=== PATIENT | male | born 1965 | race Caucasian/White ===

== ENCOUNTER 2023-02-22 08:20 | Day surgery (SDC) | payer OTHER ==
[2023-02-22 08:22] LABS: #Basophils 0.1 thou/uL (0.0-0.2); #Eosinphils 0.1 thou/uL (0.0-0.7); #Monocytes 0.8 thou/uL (0.11-0.59); #Neutrophils 7.1 thou/uL (1.40-6.50); %Basophils 0.5 % (0.0-1.0); %Eosinophils 0.8 % (0.0-10.0); %Monocytes 8.2 % (0.0-10.0); %Neutrophils 77.1 % (42.0-75.0); Hematocrit 46.4 % (42.0-52.0); Hemoglobin 14.7 g/dL (14.0-18.0); Mean Corpuscular HGB CONC 31.7 g/dL (32.0-36.0); Mean Corpuscular Hemoglobin 28.7 pg (27.0-31.0); Mean Corpuscular Volume 90.6 fl (78.0-98.0); Mean Platelet Volume 9.9 fL (7.4-10.4); Platelet Count 211 10x3/uL (130-400); RBC Distribution Width 17.3 % (11.5-14.5); Red Blood Cell (RBC) Count 5.12 mill/uL (4.70-6.10); White Blood Cell (WBC) Count 9.2 10x3/uL (4.8-10.8)
[2023-02-22 08:36] LABS: INR-International Normal Ratio 0.9; PTT 27.4 sec (22.9-36.1); Prothrombin Time 12.6 sec (12.0-14.7)
[2023-02-22 11:29] VITALS: BP 136/89; TEMP 98.6
== END 2023-02-22 13:08 | disposition home or self-care (01) ==
LOC: CT 08:20
PROVIDERS: ATTEND Urology
PROC: 0WBH3ZX Excision of Retroperitoneum, Percutaneous Approach, Diagnostic (ICD-10-PCS; principal; 2023-02-22)
DX: C64.2 Malignant neoplasm of left kidney, except renal pelvis (principal); I10 Essential (primary) hypertension; E78.00 Pure hypercholesterolemia, unspecified; Z90.49 Acquired absence of other specified parts of digestive tract; Z79.899 Other long term (current) drug therapy; Z87.891 Personal history of nicotine dependence
CPT/HCPCS: 36415; 49180; 77012; 85025; 85610; 85730; 88184; 88305; 88333; 88334; 88341; 88342

== ENCOUNTER 2023-03-16 08:22 | Outpatient (CLI) | payer OTHER | END 2023-03-16 08:23 | disposition home or self-care (01) | LOC: CT 08:22 | PROVIDERS: ATTEND Internal Medicine Hematology & Oncology | DX: C64.2 Malignant neoplasm of left kidney, except renal pelvis (principal); C77.2 Secondary and unspecified malignant neoplasm of intra-abdominal lymph nodes; R91.8 Other nonspecific abnormal finding of lung field; N28.89 Other specified disorders of kidney and ureter; M48.8X4 Other specified spondylopathies, thoracic region | CPT/HCPCS: 71260; 74177; 78306; A9503 ==

== ENCOUNTER 2023-05-25 11:38 | Outpatient (CLI) | payer OTHER | END 2023-05-25 11:39 | disposition home or self-care (01) | LOC: SCSMRI 11:38 | PROVIDERS: ATTEND Family Medicine | DX: C79.51 Secondary malignant neoplasm of bone (principal); M54.14 Radiculopathy, thoracic region; G89.4 Chronic pain syndrome; M48.04 Spinal stenosis, thoracic region | CPT/HCPCS: 72146 ==

== ENCOUNTER 2023-05-30 09:13 | Outpatient (CLI) | payer OTHER ==
[2023-05-30] MEDS ORDERED: Iopamidol 370 76% 100 ML VIAL ONE (13:31)
== END 2023-05-30 09:14 | disposition home or self-care (01) ==
LOC: NM 09:13
PROVIDERS: ATTEND Internal Medicine Hematology & Oncology
DX: S22.079A Unspecified fracture of T9-T10 vertebra, initial encounter for closed fracture (principal); C64.9 Malignant neoplasm of unspecified kidney, except renal pelvis; C79.51 Secondary malignant neoplasm of bone; M89.9 Disorder of bone, unspecified; N28.89 Other specified disorders of kidney and ureter
CPT/HCPCS: 71260; 74177; 78306; A9503

== ENCOUNTER 2023-11-22 08:37 | Outpatient (CLI) | payer OTHER ==
[2023-11-22] MEDS ORDERED: Iopamidol 370 76% 100 ML VIAL ONE (10:52)
== END 2023-11-22 08:38 | disposition home or self-care (01) ==
LOC: CT 08:37
PROVIDERS: ATTEND Internal Medicine Hematology & Oncology
DX: C64.2 Malignant neoplasm of left kidney, except renal pelvis (principal); C79.51 Secondary malignant neoplasm of bone; R91.8 Other nonspecific abnormal finding of lung field
CPT/HCPCS: 71260; 74177; Q9967

== ENCOUNTER 2024-02-24 08:48 | Outpatient (CLI) | payer OTHER ==
[2024-02-24] MEDS ORDERED: Iopamidol 370 76% 100 ML VIAL ONE (11:32)
== END 2024-02-24 08:49 | disposition home or self-care (01) ==
LOC: CT 08:48
PROVIDERS: ATTEND Internal Medicine Hematology & Oncology
DX: C64.2 Malignant neoplasm of left kidney, except renal pelvis (principal); C79.51 Secondary malignant neoplasm of bone; R91.1 Solitary pulmonary nodule; N28.89 Other specified disorders of kidney and ureter; M89.9 Disorder of bone, unspecified
CPT/HCPCS: 71260; 74177; 78306; A9503; Q9967

== ENCOUNTER 2024-05-08 08:48 | Outpatient (CLI) | payer OTHER | END 2024-05-08 08:49 | disposition home or self-care (01) | LOC: NM 08:48 | PROVIDERS: ATTEND Internal Medicine Hematology & Oncology | DX: C64.2 Malignant neoplasm of left kidney, except renal pelvis (principal); C79.51 Secondary malignant neoplasm of bone; R91.1 Solitary pulmonary nodule | CPT/HCPCS: 78306; A9503 ==

== ENCOUNTER 2024-05-24 09:17 | Outpatient (CLI) | payer OTHER | END 2024-05-24 09:18 | disposition home or self-care (01) | LOC: CT 09:17 | PROVIDERS: ATTEND Internal Medicine Hematology & Oncology | DX: C64.2 Malignant neoplasm of left kidney, except renal pelvis (principal); C79.51 Secondary malignant neoplasm of bone; R91.8 Other nonspecific abnormal finding of lung field; N28.89 Other specified disorders of kidney and ureter; M89.9 Disorder of bone, unspecified | CPT/HCPCS: 71260; 74177 ==

== ENCOUNTER 2024-07-12 15:15 | Outpatient (CLI) | payer OTHER | END 2024-07-12 15:16 | disposition home or self-care (01) | LOC: BICRAD 15:15 | PROVIDERS: ATTEND Radiology Radiation Oncology | DX: R07.2 Precordial pain (principal); C79.51 Secondary malignant neoplasm of bone; M84.48XD Pathological fracture, other site, subsequent encounter for fracture with routine healing | CPT/HCPCS: 71120 ==

== ENCOUNTER 2024-11-06 15:13 | Outpatient (CLI) | payer OTHER | END 2024-11-06 15:14 | disposition home or self-care (01) | LOC: RAD 15:13 | PROVIDERS: ATTEND Internal Medicine | DX: Z01.89 Encounter for other specified special examinations (principal); J91.0 Malignant pleural effusion; J98.11 Atelectasis; M89.9 Disorder of bone, unspecified; C79.51 Secondary malignant neoplasm of bone; C80.1 Malignant (primary) neoplasm, unspecified; Z95.828 Presence of other vascular implants and grafts | CPT/HCPCS: 71046 ==

== ENCOUNTER 2024-12-04 14:31 | Outpatient (CLI) | payer OTHER | END 2024-12-04 14:32 | disposition home or self-care (01) | LOC: SCSRAD 14:31 | PROVIDERS: ATTEND Internal Medicine Hematology & Oncology | DX: D50.0 Iron deficiency anemia secondary to blood loss (chronic) (principal); C64.2 Malignant neoplasm of left kidney, except renal pelvis; R09.02 Hypoxemia; J90 Pleural effusion, not elsewhere classified; C79.51 Secondary malignant neoplasm of bone; R91.8 Other nonspecific abnormal finding of lung field; J98.6 Disorders of diaphragm; J94.9 Pleural condition, unspecified | CPT/HCPCS: 71046 ==

== ENCOUNTER 2024-12-24 22:27 | Observation (INO) | payer OTHER ==
[2024-12-24 23:51] LABS: Hematocrit 13.4 % (42.0-52.0); Hemoglobin 4.2 g/dL (14.0-18.0); Mean Corpuscular Hemoglobin 32.8 pg (27.0-31.0); Mean Corpuscular Volume 104.7 fL (78.0-98.0); Platelet Count 11 10x3/uL (130-400); Red Blood Cell (RBC) Count 1.28 mill/uL (4.70-6.10); White Blood Cell (WBC) Count 2.79 10x3/uL (4.8-10.8)
[2024-12-24 23:52] LABS: #Basophils Less than 0.03 10x3/uL (0.0-0.2); #Eosinophils 0.04 10x3/uL (0.0-0.7); #Monocytes 0.15 10x3/uL (0.11-0.59); #Neutrophils 2.46 10x3/uL (1.40-6.50); %Basophils 0.4 % (0.0-1.0); %Eosinophils 1.4 % (0.0-10.0); %Lymphocytes 4.3 % (21.0-51.0); %Monocytes 5.4 % (0.0-10.0); %Neutrophils 88.1 % (42.0-75.0)
[2024-12-25] LABS: ALT (SGPT) 16 U/L (Less than 45); AST (SGOT) 32 U/L (11-34); Albumin 3.1 g/dL (3.1-4.5); Alkaline Phosphatase 177 U/L (40-110); Anion Gap 18 mmol/L (10-20); BUN (Urea Nitrogen) 34 mg/dL (8.4-25.7); Bilirubin, Total 0.2 mg/dL (0.3-1.2); Calc. Creatinine Clearance 0 mL/min (70-130); Calcium 9.8 mg/dL (7.8-10.44); Carbon Dioxide 31 mmol/L (22-29); Chloride 97 mmol/L (98-107); Globulin 3.0 g/dL (2.4-3.5); Glucose 129 mg/dL (70-105); Potassium 4.2 mmol/L (3.5-5.1); Sodium 142 mmol/L (136-145)
[2024-12-25] MEDS ORDERED: Calcium Carbonate 500 MG ChewTAB PO PRN (05:26)
[2024-12-25] MEDS ORDERED: Ondansetron PF 4 MG/2 ML Vial IVP PRN (05:26)
[2024-12-25] MEDS ORDERED: Acetaminophen 325 MG TAB PO PRN (05:26)
[2024-12-25 10:46] LABS: #Basophils Less than 0.03 10x3/uL (0.0-0.2); #Eosinophils 0.09 10x3/uL (0.0-0.7); #Monocytes 0.44 10x3/uL (0.11-0.59); #Neutrophils 3.33 10x3/uL (1.40-6.50); %Basophils 0.5 % (0.0-1.0); %Eosinophils 2.2 % (0.0-10.0); %Lymphocytes 5.1 % (21.0-51.0); %Monocytes 10.7 % (0.0-10.0); %Neutrophils 81.0 % (42.0-75.0); Hematocrit 21.6 % (42.0-52.0); Hemoglobin 6.7 g/dL (14.0-18.0); Mean Corpuscular Hemoglobin 31.8 pg (27.0-31.0); Mean Corpuscular Volume 102.4 fL (78.0-98.0); Platelet Count 119 10x3/uL (130-400); Red Blood Cell (RBC) Count 2.11 mill/uL (4.70-6.10); White Blood Cell (WBC) Count 4.11 10x3/uL (4.8-10.8)
[2024-12-25] MEDS ORDERED: Iopamidol 370 76% 100 ML VIAL ONE (11:03)
[2024-12-25 11:33] LABS: Anisocytosis SLIGHT = 6-15 cells HPF (0-5); Macrocytosis SLIGHT = 6-15 cells HPF (0-5); Platelet Adequacy Comment Platelets Decreased; Polychromasia SLIGHT = 2-3 cells HPF (0-2)
[2024-12-25] MEDS ORDERED: ALPRAZolam 0.25 MG TAB PO PRN (15:05)
[2024-12-25] MEDS ORDERED: oxyCODONE/Acetaminophen 5 mg/325 mg Tablet PO PRN (15:09)
[2024-12-25 15:59] LABS: Hematocrit 25.2 % (42.0-52.0); Hemoglobin 7.7 g/dL (14.0-18.0)
[2024-12-25] MEDS: Bumetanide 1 MG/4 ML VIAL IVP SCH (16:52)
[2024-12-25] MEDS ORDERED: Senokot S 8.6-50 MG TAB PO SCH (21:00)
[2024-12-26 06:24] VITALS: BP 142/86; TEMP 97.9
[2024-12-26] MEDS ORDERED: Naloxegol 12.5 MG TAB PO SCH (07:30)
== END 2024-12-25 17:57 | disposition home or self-care (01) ==
LOC: ERS 22:27 → MSONC 12-25 05:34
PROVIDERS: ADMIT Student in an Organized Health Care Education/Training Program; ATTEND Student in an Organized Health Care Education/Training Program
DX: D61.818 Other pancytopenia (principal); C64.9 Malignant neoplasm of unspecified kidney, except renal pelvis; I10 Essential (primary) hypertension; E78.5 Hyperlipidemia, unspecified; J90 Pleural effusion, not elsewhere classified; Z87.891 Personal history of nicotine dependence; Z90.49 Acquired absence of other specified parts of digestive tract
CPT/HCPCS: 36415; 36430; 71045; 71260; 74177; 83880; 84484; 85025; 86850; 86900; 86901; 93005; 93970; 96374; G0378; J3490; P9016; Q9967

== ENCOUNTER 2025-01-02 11:24 | Inpatient (IN) | payer OTHER ==
[2025-01-02] MEDS ORDERED: Ondansetron PF 4 MG/2 ML Vial ONE (11:54)
[2025-01-02 11:59] LABS: #Basophils Less than 0.03 10x3/uL (0.0-0.2); #Eosinophils 0.04 10x3/uL (0.0-0.7); #Monocytes 0.45 10x3/uL (0.11-0.59); #Neutrophils 3.78 10x3/uL (1.40-6.50); %Basophils 0.2 % (0.0-1.0); %Eosinophils 0.9 % (0.0-10.0); %Lymphocytes 3.8 % (21.0-51.0); %Monocytes 10.1 % (0.0-10.0); %Neutrophils 84.8 % (42.0-75.0); Hematocrit 26.6 % (42.0-52.0); Hemoglobin 7.9 g/dL (14.0-18.0); Mean Corpuscular Hemoglobin 31.7 pg (27.0-31.0); Mean Corpuscular Volume 106.8 fL (78.0-98.0); Platelet Count 97 10x3/uL (130-400); Red Blood Cell (RBC) Count 2.49 mill/uL (4.70-6.10); White Blood Cell (WBC) Count 4.46 10x3/uL (4.8-10.8)
[2025-01-02] MEDS ORDERED: Cefepime 2 GM VIAL ONE (12:13)
[2025-01-02 12:29] LABS: ALT (SGPT) 13 U/L (Less than 45); AST (SGOT) 35 U/L (11-34); Albumin 2.9 g/dL (3.1-4.5); Alkaline Phosphatase 159 U/L (40-110); Anion Gap 15 mmol/L (10-20); BUN (Urea Nitrogen) 23 mg/dL (8.4-25.7); Bilirubin, Total 0.4 mg/dL (0.3-1.2); Calc. Creatinine Clearance 0 mL/min (70-130); Carbon Dioxide 25 mmol/L (22-29); Chloride 103 mmol/L (98-107); Globulin 3.5 g/dL (2.4-3.5); Glucose 89 mg/dL (70-105); Potassium 4.7 mmol/L (3.5-5.1); Sodium 138 mmol/L (136-145)
[2025-01-02] MEDS ORDERED: Prochlorperazine 10 MG/2 ML VIAL ONE (12:43)
[2025-01-02 12:54] LABS: Calcium 17.3 mg/dL (7.6-10.4)
[2025-01-02] MEDS ORDERED: Furosemide 40 MG (4 mL) VIAL ONE (13:07)
[2025-01-02] MEDS ORDERED: Iopamidol-370 76% 500 ML MDV (1 ML CHARGE) ONE (13:13)
[2025-01-02 13:15] LABS: Anisocytosis SLIGHT = 6-15 cells HPF (0-5); Macrocytosis SLIGHT = 6-15 cells HPF (0-5); Ovalocytes MODERATE= 6-15 cells HPF (0-1); Platelet Adequacy Comment Platelets Decreased; Polychromasia SLIGHT = 2-3 cells HPF (0-2)
[2025-01-02] MEDS ORDERED: Senokot S 8.6-50 MG TAB PO PRN (14:07)
[2025-01-02 15:10] LABS: Bacteria/HPF None Seen HPF (None Seen); CAUTI Indications for Culture Fever or rigors; Glucose, Urine (Dipstick) Normal (Negative); Leukocyte Negative Leu/uL (Negative); Protein, Urine (Dipstick) Negative (Neg-Trace); RBC/HPF 0-3 HPF (0-3); Specific Gravity, Urine 1.009 (1.002-1.036); WBC/HPF 0-3 HPF (0-3)
[2025-01-02 15:13] LABS: Urine Culture Reflex No No
[2025-01-02 15:21] LABS: INR-International Normal Ratio 1.2; Prothrombin Time 15.2 sec (12.0-14.7)
[2025-01-02 15:22] LABS: PTT 37.3 sec (22.9-36.1)
[2025-01-02] MEDS: VANCOMYCIN 1.75 GM/350 ML Premix BAG IVPB SCH (17:02)
[2025-01-02] MEDS: oxyCODONE/Acetaminophen 5 mg/325 mg Tablet PO PRN ×2 (18:22→23:50)
[2025-01-02] MEDS: Famotidine/PF 20 mg/2ml Vial SLOW IVP SCH (20:31)
[2025-01-02 20:45] VITALS: BMI 22.9
[2025-01-02] MEDS ORDERED: Acetaminophen 325 MG TAB PO PRN (22:56)
[2025-01-03] MEDS: Furosemide 40 MG (4 mL) VIAL SLOW IVP SCH (05:44)
[2025-01-03] MEDS: Lisinopril 2.5 MG TAB PO SCH (09:28)
[2025-01-03] MEDS: Naloxegol 12.5 MG TAB PO SCH (09:28)
[2025-01-03] MEDS: ALPRAZolam 0.25 MG TAB PO PRN (09:32)
[2025-01-03 10:37] LABS: #Basophils Less than 0.03 10x3/uL (0.0-0.2); #Eosinophils Less than 0.03 10x3/uL (0.0-0.7); #Monocytes 0.44 10x3/uL (0.11-0.59); #Neutrophils 3.54 10x3/uL (1.40-6.50); %Basophils 0.2 % (0.0-1.0); %Eosinophils 0.2 % (0.0-10.0); %Lymphocytes 3.1 % (21.0-51.0); %Monocytes 10.6 % (0.0-10.0); %Neutrophils 85.7 % (42.0-75.0); Hematocrit 23.7 % (42.0-52.0); Hemoglobin 7.0 g/dL (14.0-18.0); Mean Corpuscular Hemoglobin 32.0 pg (27.0-31.0); Mean Corpuscular Volume 108.2 fL (78.0-98.0); Platelet Count 90 10x3/uL (130-400); Red Blood Cell (RBC) Count 2.19 mill/uL (4.70-6.10); White Blood Cell (WBC) Count 4.14 10x3/uL (4.8-10.8)
[2025-01-03 10:53] LABS: ALT (SGPT) 14 U/L (Less than 45); AST (SGOT) 32 U/L (11-34); Albumin 2.9 g/dL (3.1-4.5); Alkaline Phosphatase 156 U/L (40-110); Anion Gap 14 mmol/L (10-20); BUN (Urea Nitrogen) 26 mg/dL (8.4-25.7); Bilirubin, Total 0.3 mg/dL (0.3-1.2); Calc. Creatinine Clearance 87 mL/min (70-130); Calcium 16.5 mg/dL (7.8-10.44); Carbon Dioxide 25 mmol/L (22-29); Chloride 104 mmol/L (98-107); Globulin 3.3 g/dL (2.4-3.5); Glucose 111 mg/dL (70-105); Potassium 4.1 mmol/L (3.5-5.1); Sodium 139 mmol/L (136-145)
[2025-01-03 12:04] VITALS: BMI 22.9
[2025-01-03] MEDS: Calcitonin,Salmon,Synthetic 400 UNITS/2 ML SC SCH (15:18)
[2025-01-03] MEDS: oxyCODONE/Acetaminophen 5 mg/325 mg Tablet PO SCH (18:15)
[2025-01-03] MEDS: ALPRAZolam 0.25 MG TAB PO SCH (18:15)
[2025-01-03] MEDS: Ondansetron PF 4 MG/2 ML Vial IVP PRN (18:18)
[2025-01-03] MEDS: Oxymetazoline HCl 0.05% (30 ML BOT) NS SCH (21:10)
[2025-01-03] MEDS: Melatonin 3 MG TAB PO PRN (23:41)
[2025-01-04 06:15] LABS: #Basophils Less than 0.03 10x3/uL (0.0-0.2); #Eosinophils Less than 0.03 10x3/uL (0.0-0.7); #Monocytes 0.48 10x3/uL (0.11-0.59); #Neutrophils 4.36 10x3/uL (1.40-6.50); %Basophils 0.0 % (0.0-1.0); %Eosinophils 0.2 % (0.0-10.0); %Lymphocytes 2.0 % (21.0-51.0); %Monocytes 9.7 % (0.0-10.0); %Neutrophils 87.7 % (42.0-75.0); Hematocrit 25.9 % (42.0-52.0); Hemoglobin 7.8 g/dL (14.0-18.0); Mean Corpuscular Hemoglobin 31.3 pg (27.0-31.0); Mean Corpuscular Volume 104.0 fL (78.0-98.0); Platelet Count 99 10x3/uL (130-400); Red Blood Cell (RBC) Count 2.49 mill/uL (4.70-6.10); White Blood Cell (WBC) Count 4.97 10x3/uL (4.8-10.8)
[2025-01-04 06:37] LABS: ALT (SGPT) 14 U/L (Less than 45); AST (SGOT) 33 U/L (11-34); Albumin 2.9 g/dL (3.1-4.5); Alkaline Phosphatase 142 U/L (40-110); Anion Gap 13 mmol/L (10-20); BUN (Urea Nitrogen) 25 mg/dL (8.4-25.7); Bilirubin, Total 0.4 mg/dL (0.3-1.2); Calc. Creatinine Clearance 98 mL/min (70-130); Calcium 14.9 mg/dL (7.8-10.44); Carbon Dioxide 25 mmol/L (22-29); Chloride 104 mmol/L (98-107); Globulin 3.3 g/dL (2.4-3.5); Glucose 101 mg/dL (70-105); Potassium 4.1 mmol/L (3.5-5.1); Sodium 138 mmol/L (136-145)
[2025-01-04] MEDS: ALPRAZolam 0.25 MG TAB PO PRN (07:36)
[2025-01-04] MEDS: Calcitonin,Salmon,Synthetic 400 UNITS/2 ML SC SCH (08:22)
[2025-01-04 09:09] VITALS: BP 113/53; TEMP 97.5
== END 2025-01-04 12:54 | disposition hospice, home (50) | DRG 292 ==
LOC: ERS 11:24 → MSONC 13:42
PROVIDERS: ADMIT Family Medicine; ATTEND Internal Medicine
DX: I50.9 Heart failure, unspecified (principal); C64.2 Malignant neoplasm of left kidney, except renal pelvis; J90 Pleural effusion, not elsewhere classified; K86.1 Other chronic pancreatitis; Z51.5 Encounter for palliative care; E03.9 Hypothyroidism, unspecified; I10 Essential (primary) hypertension; E83.52 Hypercalcemia; D63.0 Anemia in neoplastic disease; G89.3 Neoplasm related pain (acute) (chronic); Z87.442 Personal history of urinary calculi; Z85.830 Personal history of malignant neoplasm of bone; Z85.038 Personal history of other malignant neoplasm of large intestine; Z90.49 Acquired absence of other specified parts of digestive tract; Z98.890 Other specified postprocedural states; Z87.891 Personal history of nicotine dependence
CPT/HCPCS: 36415; 36430; 71045; 71275; 74177; 80053; 81001; 83605; 83880; 84484; 85025; 85610; 85730; 86850; 86900; 86901; 87040; 93005; 93306; 94760; 96374; 96375; J0630; J0692; J0780; J1308; J1940; J2060; J2270; J2405; J3010; J3375; J3489; J7030; J7620; P9016; Q9967